=== PATIENT | female | born 1960 | race Caucasian/White ===

== ENCOUNTER 2019-04-30 13:54 | Emergency (ER) | payer MEDICARE, MEDICAID ==
[2019-04-30 14:11] VITALS: PULSE 68
[2019-04-30] MEDS ORDERED: methylPREDNISolone Sodium Succinate 125 MG/2 ML SDV IVPUSH ONE (14:22)
[2019-04-30] MEDS ORDERED: Albuterol/Ipratropium 3.0-0.5 MG/3 ML Neb Soln NEB ONE (14:23)
[2019-04-30] MEDS ORDERED: Sodium Chloride 0.9% 10 ML Syringe FLUSH PRN (14:24)
--- NOTE | 2019-04-30 14:48 | EDM.PDOC ---
ED HPI GENERAL MEDICAL PROBLEM - General Chief Complaint: Respiratory Problem Stated Complaint: COPD Time Seen by Provider: 04/30/19 14:05 Source of Information: Reports: Patient, Old Records History Limitations: Reports: No Limitations - History of Present Illness INITIAL COMMENTS - FREE TEXT/NARRATIVE: Patient is here today for evaluation of increased shortness of breath, increased foul tasting sputum that has gone from pale to dark yellow to thich and green. She feels that her lungs are at about half capacity. She does not cough excessively but when she does she produces a large amount of sputum. She reports that she has been instructed to come in earlier after onset of symptoms. In the past she has had to be hospitalized multiple times as she waited too long. She denies fever and chills. This started Wednesday with increased sputum that was pale to dark yellow. It has progressed to thick and green sputum. She has ahd increasing shortness of breath and now her lungs feel like they are at half capacity. She denies any sinus symptoms or discharge. No hemoptysis. She has frequent headaches for which she takes Ibuprofen Onset: Gradual Location: Reports: Chest Quality: Reports: Same as Previous Episode Associated Symptoms: Reports: Cough, cough w sputum, Loss of Appetite, Shortness of Breath - Related Data Allergies Allergy/AdvReac Type Severity Reaction Status Date / Time bupropion Allergy Hives Verified 03/30/18 10:50 Sulfa (Sulfonamide Allergy Itching Verified 03/30/18 10:50 Antibiotics) codeine AdvReac Chest Pain Verified 03/30/18 10:50 Home Meds: Home Meds ALPRAZolam [Xanax] 1 tab PO TID PRN 06/05/14 [History] Albuterol [Proair HFA] 2 puff INH Q6H PRN 06/05/14 [History] Baclofen 1 tab PO TID 06/05/14 [History] DULoxetine [Cymbalta] 1 cap PO DAILY 06/05/14 [History] Diphenoxylate HCl/Atropine [Diphenoxylate-Atrop 2.5-0.025] 2 tab PO QID PRN [History] Levothyroxine Sodium [Synthroid] 1 tab PO DAILY 06/05/14 [History] Lisinopril 0.5 tab PO DAILY 06/05/14 [History] Pantoprazole [ProTONIX] 1 tab PO DAILY 06/05/14 [History] SUMAtriptan Succinate [Imitrex] 1 tab PO DAILY PRN 06/05/14 [History] Timolol Maleate [Timoptic 0.5% Ophth Soln] 1 drop EYELF DAILY 06/05/14 [History] Travoprost (Benzalkonium) [Travoprost 0.004% Eye Drop] 1 drop EYELF ACBED [History] Verapamil [Verelan] 120 mg PO DAILY 06/05/14 [History] traMADol [Ultram] 1 tab PO TID MDD pain 06/05/14 [History] Hydrochlorothiazide 1 tab PO DAILY 07/25/15 [History] Acetaminophen [Tylenol Extra Strength] 2 tab PO BID PRN 07/14/16 [History] Cyanocobalamin (Vitamin B-12) [Vitamin B-12] 1 tab PO DAILY 07/14/16 [History] Ibuprofen 600 mg PO BID PRN 07/14/16 [History] Potassium 99 mg PO DAILY 07/14/16 [History] ALPRAZolam [Alprazolam Xr] 1 tab PO QAM 04/20/17 [History] Gabapentin [Neurontin] 200 mg PO TID 30 Days #180 capsule 03/30/18 [Rx] Doxycycline [Vibramycin] 100 mg PO BID 10 Days #20 cap 04/30/19 [Rx] Past Medical History HEENT History: Reports: Glaucoma Cardiovascular History: Reports: Angina, Hypertension, Syncope Respiratory History: Reports: Pulmonary Fibrosis, Other (See Below) Other Respiratory History: community acquired pneumonia Gastrointestinal History: Reports: Chronic Diarrhea, Gastritis, GERD, Other ( See Below) Other Gastrointestinal History: colitis Neurological History: Reports: Headaches, Chronic, Other (See Below) Other Neuro History: lumbar canal stenosis Psychiatric History: Reports: Anxiety Endocrine/Metabolic History: Reports: Hypothyroidism Hematologic History: Reports: Other (See Below) Other Hematologic History: leukocytosis - Past Surgical History GI Surgical History: Reports: Cholecystectomy, Colonoscopy, EGD Social & Family History - Living Situation & Occupation Living situation: Reports: Single, with Significant Other Occupation: Disabled (Anxiety) ED ROS GENERAL - Review of Systems Review Of Systems: See Below Constitutional: Reports: Malaise, Fatigue, Decreased Appetite HEENT: Reports: No Symptoms Respiratory: Reports: Shortness of Breath, Wheezing, Cough, Sputum Cardiovascular: Reports: No Symptoms Endocrine: Reports: Fatigue GI/Abdominal: Reports: Anorexia, Decreased Appetite, Nausea : Reports: No Symptoms Musculoskeletal: Reports: No Symptoms Skin: Reports: No Symptoms Neurological: Reports: No Symptoms Psychiatric: Reports: No Symptoms Hematologic/Lymphatic: Reports: No Symptoms ED EXAM, GENERAL - Physical Exam Exam: See Below Course - Vital Signs Last Recorded V/S: Last Vital Signs Temp 97.3 F 04/30/19 14:10 Pulse 68 04/30/19 14:10 Resp 14 04/30/19 14:10 BP 166/84 H 04/30/19 16:26 Pulse Ox 85 L 04/30/19 15:26 - Orders/Labs/Meds Meds: Medications Discontinued Medications Generic Name Dose Route Start Last Admin Trade Name Freq PRN Reason Stop Dose Admin Albuterol/Ipratropium 3 ml 04/30/19 14:23 04/30/19 14:58 Duoneb 3.0-0.5 Mg/3 Ml NEB 04/30/19 14:24 3 ml ONETIME ONE Administration Ceftriaxone Sodium 1 gm 04/30/19 15:15 04/30/19 15:38 Rocephin IVPUSH 04/30/19 15:16 1 gm STAT ONE Administration Doxycycline Hyclate 100 mg 05/01/19 08:00 Vibramycin PO BID DYANA Doxycycline Monohydrate 1 packet 04/30/19 15:42 04/30/19 16:27 Take Home: Doxycycline 100 Mg, 4 Tab Pack PO 04/30/19 15:43 1 packet ONETIME ONE Administration Methylprednisolone Sodium Succinate 125 mg 04/30/19 14:22 04/30/19 15:08 Solu-Medrol IVPUSH 04/30/19 14:23 125 mg ONETIME ONE Administration Prednisone 1 packet 04/30/19 16:12 04/30/19 16:27 Take Home: Prednisone 20 Mg, 2 Tab Pack PO 04/30/19 16:13 1 packet ONETIME ONE Administration Sodium Chloride 10 ml 04/30/19 14:24 Saline Flush FLUSH ASDIRECTED PRN Keep Vein Open Departure - Departure Time of Disposition: 16:00 Disposition: Home, Self-Care 01 Clinical Impression: Exacerbation of asthma - Discharge Information *PRESCRIPTION DRUG MONITORING PROGRAM REVIEWED*: Not Applicable *COPY OF PRESCRIPTION DRUG MONITORING REPORT IN PATIENT YOON: Not Applicable Prescriptions: Doxycycline [Vibramycin] 100 mg PO BID 10 Days #20 cap Instructions: Chronic Obstructive Pulmonary Disease Exacerbation, [id number] , Steps to Quit Smoking, [id number] Referrals: Natalie Quesada NP [Primary Care Provider] - Forms: ED Department Discharge Additional Instructions: 1. Stay hydrated 2. Take medication as prescribed even if you are feeling better 3. Call with any questions 4. See your primary care provider to follow up on your high blood pressure and if your condition does not improve. 5. Your medication can cause sunburn or rash; be sure to wear sunscreen, stay out of the sun or clothing to protect your skin. 6. You have been diagnosed with COPD exacerbation MLP Sign Off - Signature Requirements MLP Sign Off: No - Problem List Review Problem List Initiated/Reviewed/Updated: Yes - Assessment/Plan Assessment:: COPD exacerbation Asthma Nicotine Dependence/Abuse Plan: She was given nebulizer. This did help somewhat. She has copious amounts of foul tasting sputum. She is given script for Doxycycline. She is given Solu Medrol She is given script for Prednisone She is encouraged to increase hydration Sheis asked to call if problems She is asked to see her PCP for followup. Sooner if symptoms do not improve She is advised re: need to have sun protection with doxycycline and potential for GI upset. She and system administration manager verbalized understanding
[2019-04-30] MEDS ORDERED: cefTRIAXone 2 GM Vial IVPUSH ONE (15:15)
[2019-04-30] MEDS ORDERED: Take Home: Doxycycline 100 MG Tab, 4 Tab Pack PO ONE (15:42)
--- NOTE | 2019-04-30 15:49 | CR ---
[id number] RAD/RAD Chest PA And Lateral EXAM: RAD Chest PA And Lateral CLINICAL DATA: SHORTNESS OF BREATH COMPARISON: NO PREVIOUS SIMILAR EXAM IS AVAILABLE. FINDINGS: There is discoid atelectasis at the right lung base. The lungs otherwise are clear. The cardiomediastinal contour is normal. Consider CT chest if there is concern for pulmonary embolus. IMPRESSION: DISCOID ATELECTASIS RIGHT LUNG BASE. Brenden Lopez MD 04/30/19 [id number] Thank you for allowing us to participate in the care of your patient.
[2019-04-30] MEDS ORDERED: Take Home: predniSONE 20 MG, 2 Tab Pack PO ONE (16:12)
[2019-04-30 17:29] VITALS: BP 166/84
[2019-05-01] MEDS ORDERED: Doxycycline 100 MG Cap PO SCH (08:00)
== END 2019-04-30 16:35 | disposition home or self-care (01) ==
LOC: VM.ED 13:54
DX: J44.1 Chronic obstructive pulmonary disease with (acute) exacerbation (principal); I10 Essential (primary) hypertension; K21.9 Gastro-esophageal reflux disease without esophagitis; F41.9 Anxiety disorder, unspecified; E03.9 Hypothyroidism, unspecified; F17.200 Nicotine dependence, unspecified, uncomplicated; Z88.2 Allergy status to sulfonamides; Z88.5 Allergy status to narcotic agent; Z88.8 Allergy status to other drugs, medicaments and biological substances; Z79.899 Other long term (current) drug therapy
CPT/HCPCS: 71046; 94640; 96374; 96375; 99283; A9270; J0696; J2930; J7620-GY